=== PATIENT | male | born 1955 | race African-American/Black ===

== ENCOUNTER 2019-08-23 13:13 | Inpatient (IN) | payer BC, MEDICAID ==
[~2019-08-23] VITALS: Ht 170.2 cm; Wt 83.1 kg
[~2019-08-23 13:13] MED LIST: AMLO10TA80 PO; HYDR25TA PO
[2019-08-23] MEDS ORDERED: LEVOFLOXACIN 750MG PREMIX 150 ML IV ONE (14:45)
[2019-08-23] MEDS ORDERED: SODIUM CHLORIDE 0.9% 1000ML BAG (SEPSIS BOLUS) IV ONE (14:45)
[2019-08-23 14:59] LABS: BASOPHILS % 1.1 % (0.0-2.0); EOSINOPHILS % 2.4 % (0.0-5.0); HEMATOCRIT. 42.2 % (42.0-52.0); HEMOGLOBIN. 13.9 g/dL (14.0-18.0); LYMPHOCYTES % 36.2 % (20.0-50.0); MEAN CORPUSCULAR HEMOGLOBIN 27.9 pg (28.0-32.0); MEAN CORPUSCULAR VOLUME 84.9 fL (80.0-94.0); MEAN PLATELET VOLUME 7.9 fl (7.4-10.4); MONOCYTES % 10.5 % (2.0-8.0); NEUTROPHILS % 49.8 % (40.0-76.0); PLATELET 280 x1000/uL (130-400); RED BLOOD CELL COUNT 4.97 mill/uL (4.7-6.1); RED CELL DISTRIBUTION WIDTH 14.9 % (11.6-14.6)
[2019-08-23 15:04] LABS: CHLORIDE 106 mEq/L (98-107)
[2019-08-23 15:08] LABS: INR 1.1; PARTIAL THROMBOPLASTIN TIME 28.3 sec (23.4-31.0); PROTHROMBIN TIME 11.2 sec (9.6-11.0)
[2019-08-23 15:29] LABS: CLARITY URINE CLEAR (CLEAR); COLOR URINE YELLOW (YELLOW); KETONES URINE NEGATIVE (NEGATIVE); LEUKOCYTE ESTERASE URINE NEGATIVE (NEGATIVE); NITRITE URINE NEGATIVE (NEGATIVE); OCCULT BLOOD URINE NEGATIVE (NEGATIVE); PH URINE 5.5 (4.5-8.0); PROTEIN URINE NEGATIVE (NEGATIVE); SPECIFIC GRAVITY URINE 1.013 (1.005-1.030); UROBILINOGEN URINE 0.2 E.U./dL (0.2-1.0)
[2019-08-23] MEDS ORDERED: ACETAMINOPHEN 325MG TABLET PO ONE (17:30)
[2019-08-23] MEDS ORDERED: ASPIRIN 325MG EC TABLET PO ONE (17:30)
[2019-08-23] MEDS ORDERED: FUROSEMIDE 40MG/4ML VIAL IV ONE (19:30)
[2019-08-23] MEDS ORDERED: NITROGLYCERIN OINT 1GM/INCH UDPKT TD ONE (19:30)
[2019-08-23 20:45] VITALS: BP 123/86
[2019-08-23 21:02] VITALS: BP 123/86
[2019-08-24] VITALS (7 sets, daily range): BP systolic 95–133; BP diastolic 65–83
[2019-08-24] MEDS ORDERED: PIPERACILLIN/TAZOBACTAM 3.375 G in DEXT 5% WATER 100 ML IV SCH ×3 (02:00→18:00)
[2019-08-24] MEDS: FUROSEMIDE 40MG/4ML VIAL IVP SCH ×2 (08:39→20:10)
[2019-08-24] MEDS: POTASSIUM CHLORIDE 20MEQ TABLET SR PO SCH ×2 (08:39→20:10)
[2019-08-24] MEDS ORDERED: ENOXAPARIN 40MG/0.4ML SYR SUBCUT SCH (09:00)
[2019-08-24] MEDS ORDERED: LOSARTAN POTASSIUM 50 MG TABLET PO SCH (09:00)
[2019-08-24 09:56] LABS: EOSINOPHILS % 3.3 % (0.0-5.0); HEMATOCRIT. 42.4 % (42.0-52.0); HEMOGLOBIN. 14.2 g/dL (14.0-18.0); LYMPHOCYTES % 37.1 % (20.0-50.0); MEAN CORPUSCULAR HEMOGLOBIN 28.2 pg (28.0-32.0); MEAN CORPUSCULAR VOLUME 84.1 fL (80.0-94.0); MEAN PLATELET VOLUME 7.8 fl (7.4-10.4); MONOCYTES % 7.8 % (2.0-8.0); NEUTROPHILS % 50.8 % (40.0-76.0); PLATELET 270 x1000/uL (130-400); RED BLOOD CELL COUNT 5.04 mill/uL (4.7-6.1); RED CELL DISTRIBUTION WIDTH 14.6 % (11.6-14.6)
[2019-08-24 09:59] LABS: CHLORIDE 107 mEq/L (98-107)
[2019-08-24 10:11] LABS: CREATINE KINASE MB FRACTION 1.8 ng/mL (0.5-3.6)
[2019-08-24 12:25] LABS: CREATINE KINASE MB FRACTION 1.6 ng/mL (0.5-3.6)
[2019-08-24] MEDS ORDERED: POTASSIUM CHLORIDE 20MEQ TABLET SR PO NR (14:15)
[2019-08-24] MEDS ORDERED: DIGOXIN 500MCG/2ML AMP IV NR (14:30)
[2019-08-24] MEDS: ACETAMINOPHEN 325MG TABLET PO PRN (14:51)
[2019-08-24] MEDS ORDERED: AMIODARONE HCL 150 MG in DEXT 5% WATER 100 ML IV NR (15:30)
[2019-08-24] MEDS ORDERED: AMIODARONE HCL 900 MG in DEXT 5% WATER 482 ML IV SCH (15:30)
[2019-08-24] MEDS ORDERED: HYDRALAZINE 20MG/ML VIAL IV PRN (17:45)
[2019-08-24] MEDS ORDERED: IPRATROPIUM/ALBUTEROL 0.5-3(2.5)MG/3ML NEB HHN PRN (17:45)
[2019-08-24] MEDS ORDERED: MORPHINE SULFATE 2 MG/ML CPJ (NOT FOR IM USE) IV PRN (17:45)
[2019-08-24] MEDS ORDERED: LORAZEPAM 2MG/ML CPJ IV PRN (17:45)
[2019-08-24] MEDS ORDERED: DIPHENHYDRAMINE 50MG/ML VIAL IV PRN (17:45)
[2019-08-24] MEDS ORDERED: LACTULOSE 20G/30ML UDC PO PRN (17:45)
[2019-08-24] MEDS ORDERED: ONDANSETRON 4MG ODT PO PRN (17:45)
[2019-08-24 18:09] LABS: BG BASE EXCESS 1.3 mmol/L (-2.0-2.0); BG CARBOXYHEMOGLOBIN 0.3 % (0.5-1.5); BG DEOXYHEMOGLOBIN 5.6 % (0.0-5.0); BG HCO3 ACT 25.6 mmol/L (22.0-26.0); BG METHEMOGLOBIN 0.1 % (0.0-1.5); BG OXYGEN SATURATION 94.4 % (92.0-98.5); BG PCO2 39.4 mmHg (35.0-45.0); BG PO2 72.1 mmHg (75.0-100.0); BG SAMPLE SITE LEFT RADIAL; BG TOTAL HEMOGLOBIN 14.9 g/dL (12.0-18.0); BG VENT MODE ROOM AIR
[2019-08-24] MEDS: DIGOXIN 500MCG/2ML AMP IV SCH (19:37)
[2019-08-24] MEDS: ENOXAPARIN 100MG/ML SYR SUBCUT SCH (19:38)
[2019-08-24] MEDS: ATORVASTATIN CALCIUM 20MG TABLET PO SCH (20:10)
[2019-08-24 20:45] LABS: CREATINE KINASE MB FRACTION 1.4 ng/mL (0.5-3.6)
[2019-08-25] VITALS (11 sets, daily range): BP systolic 113–134; BP diastolic 56–81
[2019-08-25] MEDS: PIPERACILLIN/TAZOBACTAM 3.375 G in DEXT 5% WATER 100 ML IV SCH ×4 (01:57→20:37)
[2019-08-25] MEDS: ENOXAPARIN 100MG/ML SYR SUBCUT SCH (06:14)
[2019-08-25 07:25] LABS: CHLORIDE 106 mEq/L (98-107)
[2019-08-25 07:32] LABS: BASOPHILS % 1.3 % (0.0-2.0); EOSINOPHILS % 4.2 % (0.0-5.0); HEMOGLOBIN. 14.3 g/dL (14.0-18.0); LYMPHOCYTES % 44.1 % (20.0-50.0); MEAN CORPUSCULAR HEMOGLOBIN 28.1 pg (28.0-32.0); MEAN CORPUSCULAR VOLUME 84.4 fL (80.0-94.0); MEAN PLATELET VOLUME 7.9 fl (7.4-10.4); MONOCYTES % 13.2 % (2.0-8.0); NEUTROPHILS % 37.2 % (40.0-76.0); PLATELET 288 x1000/uL (130-400); RED CELL DISTRIBUTION WIDTH 14.4 % (11.6-14.6)
[2019-08-25] MEDS: FUROSEMIDE 40MG/4ML VIAL IVP SCH ×2 (08:14→20:37)
[2019-08-25] MEDS: POTASSIUM CHLORIDE 20MEQ TABLET SR PO SCH ×2 (08:14→20:39)
[2019-08-25] MEDS ORDERED: CARVEDILOL 3.125 MG TABLET PO NR (11:00)
[2019-08-25] MEDS ORDERED: REGADENOSON 0.4 MG/5 ML IV NR (11:15)
[2019-08-25] MEDS ORDERED: IOHEXOL-350 100 ML BOTTLE ONE (14:39)
[2019-08-25] MEDS: DIGOXIN 500MCG/2ML AMP IV SCH (17:22)
[2019-08-25] MEDS: APIXABAN 5 MG TABLET PO SCH (17:22)
[2019-08-25] MEDS: LOSARTAN POTASSIUM 25 MG TABLET PO SCH (17:23)
[2019-08-25] MEDS: CARVEDILOL 3.125 MG TABLET PO SCH (20:39)
[2019-08-25] MEDS: ATORVASTATIN CALCIUM 20MG TABLET PO SCH (20:40)
[2019-08-25 23:14] LABS: *AMPHETAMINES SCREEN URINE NEGATIVE (NEGATIVE); *BARBITURATES SCREEN URINE NEGATIVE (NEGATIVE); *BENZODIAZEPINES SCREEN URINE NEGATIVE (NEGATIVE); *COCAINE SCREEN URINE NEGATIVE (NEGATIVE); METHADONE URINE SCREEN NEGATIVE (NEGATIVE); OPIATES URINE SCREEN NEGATIVE (NEGATIVE)
[2019-08-25 23:15] LABS: PHENCYCLIDINE URINE SCREEN NEGATIVE (NEGATIVE)
[2019-08-25 23:16] LABS: CANNABINOID URINE SCREEN NEGATIVE (NEGATIVE)
[2019-08-26] VITALS (12 sets, daily range): BP systolic 111–157; BP diastolic 60–96
[2019-08-26] MEDS: PIPERACILLIN/TAZOBACTAM 3.375 G in DEXT 5% WATER 100 ML IV SCH ×4 (02:20→20:47)
[2019-08-26 06:55] LABS: BASOPHILS % 1.2 % (0.0-2.0); EOSINOPHILS % 5.5 % (0.0-5.0); HEMATOCRIT. 43.1 % (42.0-52.0); HEMOGLOBIN. 14.6 g/dL (14.0-18.0); LYMPHOCYTES % 41.2 % (20.0-50.0); MEAN CORPUSCULAR HEMOGLOBIN 28.3 pg (28.0-32.0); MEAN CORPUSCULAR VOLUME 83.7 fL (80.0-94.0); MEAN PLATELET VOLUME 7.9 fl (7.4-10.4); MONOCYTES % 13.3 % (2.0-8.0); NEUTROPHILS % 38.8 % (40.0-76.0); PLATELET 304 x1000/uL (130-400); RED BLOOD CELL COUNT 5.15 mill/uL (4.7-6.1); RED CELL DISTRIBUTION WIDTH 14.5 % (11.6-14.6)
[2019-08-26 07:06] LABS: CHLORIDE 108 mEq/L (98-107)
[2019-08-26 07:28] LABS: DIGOXIN 0.6 ng/mL (0.9-2.0)
[2019-08-26] MEDS ORDERED: REGADENOSON 0.4 MG/5 ML IV ONE (09:54)
[2019-08-26] MEDS: POTASSIUM CHLORIDE 20MEQ TABLET SR PO SCH ×2 (11:35→20:48)
[2019-08-26] MEDS: LOSARTAN POTASSIUM 25 MG TABLET PO SCH (11:35)
[2019-08-26] MEDS: FUROSEMIDE 40MG/4ML VIAL IVP SCH (11:35)
[2019-08-26] MEDS: CARVEDILOL 3.125 MG TABLET PO SCH ×2 (11:36→20:48)
[2019-08-26] MEDS: APIXABAN 5 MG TABLET PO SCH ×2 (11:36→18:23)
[2019-08-26] MEDS ORDERED: DIGO125T82 MT (15:36)
[2019-08-26] MEDS ORDERED: COR3 MT (15:36)
[2019-08-26] MEDS ORDERED: POTA20TA82 MT (15:36)
[2019-08-26] MEDS ORDERED: ATOR20TA MT (15:36)
[2019-08-26] MEDS ORDERED: ALBU90AE INH (15:36)
[2019-08-26] MEDS ORDERED: LOSA25TA3 MT (15:36)
[2019-08-26] MEDS ORDERED: FURO-151 MT (15:36)
[2019-08-26] MEDS ORDERED: APIX5TAB MT (15:36)
[2019-08-26] MEDS ORDERED: DIGOXIN 125MCG TABLET PO SCH (18:00)
[2019-08-26] MEDS: FUROSEMIDE 40MG TABLET PO SCH (20:48)
[2019-08-26] MEDS: ATORVASTATIN CALCIUM 20MG TABLET PO SCH (20:48)
[2019-08-27] VITALS (12 sets, daily range): BP systolic 108–141; BP diastolic 65–93
[2019-08-27] MEDS: ACETAMINOPHEN 325MG TABLET PO PRN (00:06)
[2019-08-27] MEDS: PIPERACILLIN/TAZOBACTAM 3.375 G in DEXT 5% WATER 100 ML IV SCH ×3 (02:26→14:03)
[2019-08-27] MEDS: FUROSEMIDE 40MG TABLET PO SCH (07:57)
[2019-08-27] MEDS: LOSARTAN POTASSIUM 25 MG TABLET PO SCH (07:57)
[2019-08-27] MEDS: POTASSIUM CHLORIDE 20MEQ TABLET SR PO SCH (07:57)
[2019-08-27] MEDS: APIXABAN 5 MG TABLET PO SCH (07:57)
[2019-08-27] MEDS: CARVEDILOL 3.125 MG TABLET PO SCH (07:58)
== END 2019-08-27 16:20 | disposition home or self-care (01) | DRG 308 ==
LOC: ER 15:02 → 8WST 17:21 → ENRESERV 19:29 → 3WST 08-24 15:36
PROVIDERS: ADMIT Internal Medicine; ATTEND Internal Medicine
DX: I48.92 Unspecified atrial flutter (principal); I50.23 Acute on chronic systolic (congestive) heart failure; D68.59 Other primary thrombophilia; I11.0 Hypertensive heart disease with heart failure; I95.9 Hypotension, unspecified; I42.9 Cardiomyopathy, unspecified; R00.2 Palpitations; E87.6 Hypokalemia; D49.4 Neoplasm of unspecified behavior of bladder; I48.91 Unspecified atrial fibrillation; D72.819 Decreased white blood cell count, unspecified; E78.5 Hyperlipidemia, unspecified; I49.3 Ventricular premature depolarization; E66.9 Obesity, unspecified; R06.03 Acute respiratory distress; R07.89 Other chest pain; R73.9 Hyperglycemia, unspecified; Z87.891 Personal history of nicotine dependence; Z91.19 Patient's noncompliance with other medical treatment and regimen; Z79.01 Long term (current) use of anticoagulants; Z79.899 Other long term (current) drug therapy; Z82.49 Family history of ischemic heart disease and other diseases of the circulatory system; Z85.51 Personal history of malignant neoplasm of bladder
CPT/HCPCS: 36415; 36600; 70487; 71045; 71275; 78452; 80048; 80061; 80162; 80305; 81003; 82375; 82550; 82553; 82805; 83036; 83605; 83735; 83880; 84145; 84443; 84484; 85379; 93005; 93017; 93306; 93970; 94618; 96365; 99285; A9500; J0282; J1160; J1650; J1940; J1956; J2270; J2543; J2785; J7030; J7040; J7060; J7620; Q9967

== ENCOUNTER 2022-03-12 11:42 | Inpatient (IN) | payer BC ==
[~2022-03-12] VITALS: Ht 175.3 cm; Wt 84.5 kg
[~2022-03-12 11:42] MED LIST changes: +ALBU90AE INH; +APIX5TAB MT; +ATOR20TA MT; +COR3 MT; +DIGO125T80 MT; +FURO-151 MT; -HYDR25TA PO; +LOSA25TA3 MT; +POTA-205 MT
[2022-03-12 12:39] LABS: BASOPHILS % 1.2 % (0.0-2.0); EOSINOPHILS % 2.5 % (0.0-5.0); HEMOGLOBIN. 14.3 g/dL (14.0-18.0); MEAN CORPUSCULAR HEMOGLOBIN 27.4 pg (28.0-32.0); MEAN CORPUSCULAR VOLUME 84.1 fL (80.0-94.0); MEAN PLATELET VOLUME 8.2 fl (7.4-10.4); MONOCYTES % 14.3 % (2.0-8.0); PLATELET 235 x1000/uL (130-400); RED BLOOD CELL COUNT 5.23 mill/uL (4.7-6.1); RED CELL DISTRIBUTION WIDTH 14.2 % (11.6-14.6)
[2022-03-12 12:48] LABS: CHLORIDE 108 mEq/L (98-107)
[2022-03-12] MEDS ORDERED: ASPIRIN 81MG TABLET PO ONE (14:30)
[2022-03-12] MEDS ORDERED: NITROGLYCERIN 0.4MG TABLET SL SL PRN (14:30)
[2022-03-12] MEDS ORDERED: FUROSEMIDE 40MG/4ML VIAL IVP ONE (15:45)
[2022-03-12] MEDS ORDERED: ENOXAPARIN 80MG/0.8ML SYR SUBCUT ONE (17:00)
[2022-03-12 23:26] VITALS: BP 125/86
[2022-03-12] MEDS ORDERED: ASPI-1497 PO (23:46)
[2022-03-12] MEDS ORDERED: CLOP-31 PO (23:46)
[2022-03-13] MEDS ORDERED: APIX2.5T PO (00:59)
[2022-03-13 01:30] VITALS: BP 125/86
[2022-03-13 05:10] VITALS: BP 116/86
[2022-03-13 08:00] VITALS: BP 111/88
[2022-03-13 08:17] LABS: HEMATOCRIT 41.3 % (42.0-52.0); HEMOGLOBIN 13.9 g/dL (14.0-18.0); MEAN CORPUSCULAR HEMOGLOBIN 27.9 pg (28.0-32.0); PLATELET 228 x1000/uL (130-400); RED BLOOD CELL COUNT 4.98 mill/uL (4.7-6.1); RED CELL DISTRIBUTION WIDTH 14.3 % (11.6-14.6)
[2022-03-13 08:42] LABS: CHLORIDE 110 mEq/L (98-107)
[2022-03-13] MEDS: POTASSIUM CHLORIDE 20MEQ TABLET SR PO SCH ×2 (08:46→18:23)
[2022-03-13] MEDS: CARVEDILOL 3.125 MG TABLET PO SCH ×2 (08:48→22:36)
[2022-03-13] MEDS: CLOPIDOGREL 75MG TABLET PO SCH (08:48)
[2022-03-13] MEDS: PANTOPRAZOLE 40MG DR TABLET PO SCH (08:48)
[2022-03-13] MEDS: AMLODIPINE 10MG TABLET PO SCH (08:48)
[2022-03-13] MEDS: LOSARTAN POTASSIUM 25 MG TABLET PO SCH (08:48)
[2022-03-13] MEDS: ASPIRIN 81MG EC TABLET PO SCH (08:48)
[2022-03-13 08:54] LABS: CREATINE KINASE 391 IU/L (39-308); CREATINE KINASE MB FRACTION 2.7 ng/mL (0.5-3.6); HDL CHOLESTEROL 38 mg/dL (40-59); LDL CHOLESTEROL 163 mg/dL (5-100)
[2022-03-13] MEDS ORDERED: FUROSEMIDE 40MG/4ML VIAL IVP SCH (09:00)
[2022-03-13] MEDS ORDERED: ATORVASTATIN CALCIUM 20MG TABLET PO SCH (09:00)
[2022-03-13 12:00] VITALS: BP 110/76
[2022-03-13] MEDS: FUROSEMIDE 40MG/4ML VIAL IVP SCH ×2 (13:56→22:36)
[2022-03-13] MEDS ORDERED: IPRATROPIUM/ALBUTEROL 0.5-3(2.5)MG/3ML NEB HHN PRN (14:30)
[2022-03-13] MEDS ORDERED: ACETAMINOPHEN 325MG TABLET PO PRN (14:30)
[2022-03-13] MEDS ORDERED: HYDROCODONE/ACETAMINOPHEN 5/325MG TABLET PO PRN (14:30)
[2022-03-13] MEDS ORDERED: ACETAMINOPHEN 650MG SUPP PR PRN (14:30)
[2022-03-13] MEDS ORDERED: ONDANSETRON HCL 4MG/2ML INJ IV PRN (14:30)
[2022-03-13] MEDS ORDERED: BISACODYL 10MG SUPP PR PRN (14:30)
[2022-03-13] MEDS ORDERED: NALOXONE HCL 0.4MG/ML VIAL IV PRN (14:45)
[2022-03-13 16:00] VITALS: BP 105/70
[2022-03-13 19:22] LABS: INR 1.1; PROTHROMBIN TIME 11.8 sec (9.6-11.0)
[2022-03-13 19:38] LABS: CREATINE KINASE MB FRACTION 2.6 ng/mL (0.5-3.6)
[2022-03-13 19:53] LABS: HEPATITIS B SURFACE ANTIGEN NEGATIVE
[2022-03-13 20:00] VITALS: BP 120/65
[2022-03-13 22:14] LABS: CREATINE KINASE MB FRACTION 2.4 ng/mL (0.5-3.6)
[2022-03-14] VITALS: BP 133/60
[2022-03-14 04:00] VITALS: BP 120/87
[2022-03-14] MEDS: FUROSEMIDE 40MG/4ML VIAL IVP SCH ×2 (05:36→13:20)
[2022-03-14 08:00] VITALS: BP 113/84
[2022-03-14] MEDS: POTASSIUM CHLORIDE 20MEQ TABLET SR PO SCH (09:24)
[2022-03-14] MEDS: PANTOPRAZOLE 40MG DR TABLET PO SCH (09:24)
[2022-03-14] MEDS: LOSARTAN POTASSIUM 25 MG TABLET PO SCH (09:25)
[2022-03-14] MEDS: CARVEDILOL 3.125 MG TABLET PO SCH (09:25)
[2022-03-14] MEDS: AMLODIPINE 10MG TABLET PO SCH (09:28)
[2022-03-14 12:00] VITALS: BP 100/59
[2022-03-14 12:19] LABS: BASOPHILS % 1.2 % (0.0-2.0); EOSINOPHILS % 2.5 % (0.0-5.0); HEMOGLOBIN. 15.6 g/dL (14.0-18.0); LYMPHOCYTES % 44.4 % (20.0-50.0); MEAN CORPUSCULAR HEMOGLOBIN 27.8 pg (28.0-32.0); MEAN CORPUSCULAR VOLUME 83.8 fL (80.0-94.0); MEAN PLATELET VOLUME 8.3 fl (7.4-10.4); MONOCYTES % 12.8 % (2.0-8.0); NEUTROPHILS % 39.1 % (40.0-76.0); PLATELET 269 x1000/uL (130-400); RED BLOOD CELL COUNT 5.61 mill/uL (4.7-6.1)
[2022-03-14 12:20] LABS: CHLORIDE 107 mEq/L (98-107)
[2022-03-14] MEDS: ASPIRIN 81MG EC TABLET PO SCH (13:20)
[2022-03-14] MEDS: CLOPIDOGREL 75MG TABLET PO SCH (13:20)
[2022-03-14 16:00] VITALS: BP 97/72
[2022-03-15] MEDS ORDERED: FAMOTIDINE 20MG TABLET PO SCH (09:00)
== END 2022-03-14 16:05 | disposition home or self-care (01) | DRG 291 ==
LOC: ER 11:42 → 6WST 17:13 → EDBEDREQ 17:14 → EDBEDREQTM 17:14 → ENRESERV 20:50
PROVIDERS: ADMIT Internal Medicine; ATTEND Internal Medicine
DX: I11.0 Hypertensive heart disease with heart failure (principal); I50.23 Acute on chronic systolic (congestive) heart failure; R06.03 Acute respiratory distress; I48.0 Paroxysmal atrial fibrillation; I25.5 Ischemic cardiomyopathy; I34.0 Nonrheumatic mitral (valve) insufficiency; E78.5 Hyperlipidemia, unspecified; R74.01 Elevation of levels of liver transaminase levels; I49.1 Atrial premature depolarization; Z53.20 Procedure and treatment not carried out because of patient's decision for unspecified reasons; I49.3 Ventricular premature depolarization; I25.10 Atherosclerotic heart disease of native coronary artery without angina pectoris; Z87.891 Personal history of nicotine dependence; Z79.899 Other long term (current) drug therapy; Z85.51 Personal history of malignant neoplasm of bladder; Z95.5 Presence of coronary angioplasty implant and graft; Z79.02 Long term (current) use of antithrombotics/antiplatelets; R77.8 Other specified abnormalities of plasma proteins
CPT/HCPCS: 36415; 71045; 80048; 80053; 80061; 80076; 82550; 82553; 83880; 84484; 85025; 85027; 86705; 86709; 86803; 87340; 87426; 93005; 93306; 93970; 99291; J1650; J1940